=== PATIENT | female | born 1990 | race Caucasian/White ===

== ENCOUNTER 2017-05-27 14:40 | Inpatient (IN) | payer OTHER ==
[~2017-05-27] VITALS: Ht 162.6 cm; Wt 113.2 kg
[~2017-05-27 14:40] MED LIST: MOTRIN800 MG PO; NOHOMEMEDS; Phenergan PO; VENLAFAXINE HCL75 M3 PO; Vicodin,Norco 5/325 PO
[2017-05-27 15:23] LABS: HEMATOCRIT 40.1 % (36.0-46.0); MCH 24.7 PG (29.0-34.0); MCHC 31.7 G/DL (30.0-36.0); MCV 77.9 FL (83-99); MEAN PLAT.VOLUME 10.1 uM^3 (9.5-12.4); PLATELET COUNT 421 K/uL (156-360); RBC DIS.WIDTH-CV 16.2 % (11.8-14.6); RBC DIS.WIDTH-SD 45.9 % (39-53); RED BLOOD COUNT 5.15 M/uL (3.80-5.20); WHITE BLOOD COUNT 9.1 K/uL (4.1-10.2)
[2017-05-27 15:33] LABS: CHLORIDE 106 mEq/L (99-109); POTASSIUM 3.7 mEq/L (3.7-5.4); SODIUM 141 mEq/L (136-147)
[2017-05-27 15:34] LABS: GLUCOSE 95 mg/dL (70-99)
[2017-05-27 15:36] LABS: ANION GAP 10 MEQ/L (2-14)
[2017-05-27 15:38] LABS: GFR ESTIMATE (CALCULATED) > 59 mL/min/; SERUM ETHYL ALCOHOL < 10 mg/dL
[2017-05-27 15:39] LABS: UREA NITROGEN (BUN) 10 mg/dL (9-23)
[2017-05-27 15:47] LABS: QUANTITATIVE HCG < 4.0 MIU/ML
[2017-05-27 16:15] LABS: ADD MEDTOX COMMENT Y; AMPHETAMINE NEGATIVE (500 ng/mL); BARBITURATES NEGATIVE (200 ng/mL); BENZODIAZEPINES NEGATIVE (150 ng/mL); COCAINE NEGATIVE (150 ng/mL); INTERNAL CONTROLS VALID? YES; METHADONE NEGATIVE (200 ng/mL); METHAMPHETAMINE NEGATIVE (500 ng/mL); OPIATES (MORPHINE) NEGATIVE (100 ng/mL); OXYCODONE NEGATIVE (100 ng/mL); PHENCYCLIDINE NEGATIVE (25 ng/mL); PROPOXYPHENE NEGATIVE (300 ng/mL); THC CANNABINOIDS PRESUMPTIVE POSITIVE (50 ng/mL); TRICYCLIC ANTIDEPRESSANTS PRESUMPTIVE POSITIVE (300 ng/mL)
[2017-05-27 19:42] VITALS: BP 118/78
[2017-05-27] MEDS ORDERED: SEROQUEL200 MG PO (21:08)
[2017-05-27] MEDS ORDERED: PROAIR HFA8.5 GM IH (21:14)
[2017-05-28 07:50] VITALS: BP 110/57
[2017-05-28 15:24] VITALS: BP 133/58
[2017-05-29 07:50] VITALS: BP 109/51
[2017-05-29 15:31] VITALS: BP 160/61
[2017-05-29 15:50] VITALS: BP 120/80
[2017-05-29 18:26] VITALS: BP 125/70
[2017-05-29 21:38] VITALS: BP 123/63
[2017-05-30 07:55] VITALS: BP 104/51
[2017-05-30] MEDS ORDERED: TRAZODONE HCL50 MG PO (09:31)
[2017-05-30] MEDS ORDERED: BUSPAR10 MG PO (09:31)
[2017-05-31] MEDS ORDERED: PROVENTIL,2.5 MG/3 M IH (21:49)
[2017-05-31] MEDS ORDERED: PREDNISONE20 MG PO (21:49)
[2017-05-31] MEDS ORDERED: NEBULIZER MC (21:49)
[2017-05-31] MEDS ORDERED: VISTARIL50 MG PO (21:49)
== END 2017-05-30 10:51 | disposition home or self-care (01) | DRG 880 ==
LOC: EME 14:40 → 1WEST 17:17 → EDOF 17:17 → ENRESERV 18:55 → 1WEST 19:27
DX: F41.0 Panic disorder [episodic paroxysmal anxiety] (principal); R45.851 Suicidal ideations; G47.00 Insomnia, unspecified; F32.9 Major depressive disorder, single episode, unspecified; F12.90 Cannabis use, unspecified, uncomplicated; F41.1 Generalized anxiety disorder; J45.909 Unspecified asthma, uncomplicated; K21.9 Gastro-esophageal reflux disease without esophagitis; Z59.9 Problem related to housing and economic circumstances, unspecified; Z87.891 Personal history of nicotine dependence
CPT/HCPCS: 80048; 84702; 84999; 85027; 90839; 97150 GO; 99281; 99285; G0480; Q0177

== ENCOUNTER 2017-05-31 18:22 | Emergency (ER) | payer OTHER ==
[~2017-05-31] VITALS: Ht 162.6 cm; Wt 115.5 kg
[~2017-05-31 18:22] MED LIST changes: +BUSPAR10 MG PO; +PROAIR HFA8.5 GM IH; +SEROQUEL200 MG PO; +TRAZODONE HCL50 MG PO
[2017-05-31 20:23] LABS: HEMATOCRIT 35.4 % (36.0-46.0); MCH 24.8 PG (29.0-34.0); MCHC 31.9 G/DL (30.0-36.0); MCV 77.8 FL (83-99); PLATELET COUNT 427 K/uL (156-360); RBC DIS.WIDTH-CV 16.2 % (11.8-14.6); RBC DIS.WIDTH-SD 46.3 % (39-53); RED BLOOD COUNT 4.55 M/uL (3.80-5.20)
[2017-05-31 20:37] LABS: ANION GAP 9 MEQ/L (2-14); CHLORIDE 106 MEQ/L (99-109); POTASSIUM 3.6 MEQ/L (3.7-5.4); SAMPLE HEMOLYSIS CHECK 0; SAMPLE ICTERIC CHECK 0; SAMPLE LIPEMIA CHECK 0; SODIUM 139 MEQ/L (136-147)
[2017-05-31 20:42] LABS: GFR ESTIMATE (CALCULATED) > 59 mL/min/; GLUCOSE 96 mg/dL (70-99); UREA NITROGEN (BUN) 12 mg/dL (9-23)
[2017-05-31 20:49] LABS: D-DIMER ELISA < 150.00 ng/mLDDU (<230)
[2017-05-31] MEDS ORDERED: NEBULIZER MC (21:49)
[2017-05-31] MEDS ORDERED: PREDNISONE20 MG PO (21:49)
[2017-05-31] MEDS ORDERED: VISTARIL50 MG PO (21:49)
[2017-05-31] MEDS ORDERED: PROVENTIL,2.5 MG/3 M IH (21:49)
[2017-05-31 21:57] VITALS: BP 132/95
== END 2017-05-31 22:04 | disposition home or self-care (01) ==
LOC: EME 18:22
PROVIDERS: Physician Assistant
DX: J45.901 Unspecified asthma with (acute) exacerbation (principal); F41.9 Anxiety disorder, unspecified; K21.9 Gastro-esophageal reflux disease without esophagitis; F12.90 Cannabis use, unspecified, uncomplicated; Z87.891 Personal history of nicotine dependence
CPT/HCPCS: 71020; 80048; 85027; 85379; 93005; 94640; 99281; 99284; J7512; Q0177